=== PATIENT | female | born 1960 | race Hispanic/Latino ===

== ENCOUNTER 2019-07-30 03:45 | Emergency (ER) | payer SELFPAY ==
[2019-07-30] MEDS ORDERED: ONDANSETRON 4 MG/2 ML INJ IV ONE ×2 (04:18→12:02)
[2019-07-30] MEDS ORDERED: SODIUM CHLORIDE 0.9% 1000 ML 1,000 ML IV ONE (04:18)
--- NOTE | 2019-07-30 04:35 | Emergency Department Report ---
<AGATHA MASSEY - Last Filed: 07/30/19 08:08> ED Abdominal Pain HPI - General Chief Complaint: Arrhythmia/Palpitations Stated Complaint: HYPOTENSIVE Time Seen by Provider: 07/30/19 04:12 - Related Data Home Medications Medication Instructions Recorded Confirmed Last Taken Aspirin [Adult Low Dose Aspirin EC] 81 mg PO DAILY 09/01/16 09/02/16 09/01/16 81 mg Clopidogrel Bisulfate [Plavix] 75 mg PO DAILY 09/01/16 09/02/16 09/01/16 75 mg Dicyclomine [Bentyl] 10 mg PO QID 09/01/16 09/02/16 08/19/16 10 mg Gabapentin 600 mg PO DAILY 09/01/16 09/02/16 09/01/16 600 mg ISOSORBIDE MONOnitrate [Imdur ER] 30 mg PO DAILY 09/01/16 09/02/16 09/01/16 30 mg Insulin Aspart (Nf) [NovoLOG 0 units SQ AC 09/01/16 09/02/16 09/01/16 Flexpen] 30 units Insulin Glargine [Lantus VIAL] 50 unit SUB-Q BID 09/01/16 09/02/16 09/01/16 50 units Metoprolol Succinate 50 mg PO DAILY 09/01/16 09/02/16 09/01/16 50 mg Acyclovir [Zovirax Tab] 400 mg PO BID 09/02/16 09/02/16 09/01/16 400 mg Baclofen [Lioresal] 10 mg PO HS 09/02/16 09/02/16 09/01/16 10 mg Ondansetron [Zofran TAB] 4 mg PO Q6H PRN 09/02/16 09/02/16 08/19/16 4 mg raNITIdine HCL [Zantac 300 MG TAB] 300 mg PO HS 09/02/16 09/02/16 09/01/16 300 mg Previous Rx's Medication Instructions Recorded Last Taken Type AtorvaSTATin [Lipitor] 80 mg PO QHS #30 tablet 09/03/16 Unknown Rx Amoxicillin/Potassium Clav 1 each PO BID #20 tablet 07/30/19 Unknown Rx [Augmentin 875-125 Tablet] Ondansetron [Zofran Odt] 4 mg PO Q8HR PRN #14 tab.rapdis 07/30/19 Unknown Rx metroNIDAZOLE [Flagyl] 500 mg PO Q12HR #20 tab 07/30/19 Unknown Rx traMADoL [Ultram 50 MG tab] 50 mg PO Q4HR PRN #14 tablet 07/30/19 Unknown Rx Allergies Allergy/AdvReac Type Severity Reaction Status Date / Time Sulfa (Sulfonamide Allergy Shortness Verified 07/28/14 00:22 Antibiotics) of Breath morphine AdvReac Vomiting Verified 09/02/16 09:45 ED Past Medical Hx - Medications Home Medications: Home Medications Medication Instructions Recorded Confirmed Last Taken Type Aspirin [Adult Low Dose Aspirin EC] 81 mg PO DAILY 09/01/16 09/02/16 09/01/16 History 81 mg Clopidogrel Bisulfate [Plavix] 75 mg PO DAILY 09/01/16 09/02/16 09/01/16 History 75 mg Dicyclomine [Bentyl] 10 mg PO QID 09/01/16 09/02/16 08/19/16 History 10 mg Gabapentin 600 mg PO DAILY 09/01/16 09/02/16 09/01/16 History 600 mg ISOSORBIDE MONOnitrate [Imdur ER] 30 mg PO DAILY 09/01/16 09/02/16 09/01/16 History 30 mg Insulin Aspart (Nf) [NovoLOG 0 units SQ AC 09/01/16 09/02/16 09/01/16 History Flexpen] 30 units Insulin Glargine [Lantus VIAL] 50 unit SUB-Q BID 09/01/16 09/02/16 09/01/16 History 50 units Metoprolol Succinate 50 mg PO DAILY 09/01/16 09/02/16 09/01/16 History 50 mg Acyclovir [Zovirax Tab] 400 mg PO BID 09/02/16 09/02/16 09/01/16 History 400 mg Baclofen [Lioresal] 10 mg PO HS 09/02/16 09/02/16 09/01/16 History 10 mg Ondansetron [Zofran TAB] 4 mg PO Q6H PRN 09/02/16 09/02/16 08/19/16 History 4 mg raNITIdine HCL [Zantac 300 MG TAB] 300 mg PO HS 09/02/16 09/02/16 09/01/16 History 300 mg AtorvaSTATin [Lipitor] 80 mg PO QHS #30 tablet 09/03/16 Unknown Rx Amoxicillin/Potassium Clav 1 each PO BID #20 tablet 07/30/19 Unknown Rx [Augmentin 875-125 Tablet] Ondansetron [Zofran Odt] 4 mg PO Q8HR PRN #14 tab.rapdis 07/30/19 Unknown Rx metroNIDAZOLE [Flagyl] 500 mg PO Q12HR #20 tab 07/30/19 Unknown Rx traMADoL [Ultram 50 MG tab] 50 mg PO Q4HR PRN #14 tablet 07/30/19 Unknown Rx ED Medical Decision Making - Lab Data Result diagrams: 07/30/19 04:54 07/30/19 04:54 - Medical Decision Making Ms. Chowdary is a pleasant 59-year-old female, signed out to me by my colleague Dr. Camarena. Patient has a history of diabetes, HTN, CAD with stents, CABG, presents to ED with dizziness and abdominal pain. Patient states she was awakened from sleep with nausea, diaphoresis, mild abdominal pain, and dizziness. Patient denies fever, cough, chest pain, shortness of breath, diarrhea, headache. Patient states the epigastric pain has improved somewhat at this time. EMS reports patient was hypotensive in route. Blood pressure is currently normal. Patient reports she ate fish prepared at the grocery store earlier this evening, and is unclear if this could be the cause of her symptoms. Patient denies any sick contacts. Labs reviewed and is unremarkable. CT abdomen pelvis showed early diverticulitis. Patient given a dose of Zosyn IV in the emergency room. Patient stated that she is feeling much better. Patient given prescription for Augmentin and Flagyl and advised to follow-up with her primary care physician in the next 2 to 3 days and to return to the ER if she develop any new symptoms. ED Disposition Clinical Impression: Abdominal pain, Acute diverticulitis Disposition: TO HOME OR SELFCARE Is pt being admited?: No Condition: Stable Instructions: Diverticulitis (ED), Diverticulitis Diet (ED), Abdominal Pain (ED) Prescriptions: Amoxicillin/Potassium Clav [Augmentin 875-125 Tablet] 1 each PO BID #20 tablet metroNIDAZOLE [Flagyl] 500 mg PO Q12HR #20 tab traMADoL [Ultram 50 MG tab] 50 mg PO Q4HR PRN #14 tablet PRN Reason: Pain Ondansetron [Zofran Odt] 4 mg PO Q8HR PRN #14 tab.rapdis PRN Reason: Nausea And Vomiting Referrals: PRIMARY CARE, [Primary Care Provider] - 3-5 Days <BRETT CAMARENA - Last Filed: 07/30/19 21:23> ED Abdominal Pain HPI - General Source: patient, EMS Mode of arrival: Ambulatory Limitations: Other - History of Present Illness Initial Comments: 59-year-old female with history of diabetes, HTN, CAD with stents, CABG, presents to ED with dizziness and abdominal pain. Patient states she was awakened from sleep with nausea, diaphoresis, mild abdominal pain, and dizziness. Patient denies fever, cough, chest pain, shortness of breath, diarrhea, headache. Patient states the epigastric pain has improved somewhat at this time. EMS reports patient was hypotensive en route. Blood pressure is currently normal. Patient reports she ate fish prepared at the grocery store earlier this evening, and is unclear if this could be the cause of her symptoms. Patient denies any sick contacts. 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 denies: diarrhea, fever ED Review of Systems ROS: Stated complaint: HYPOTENSIVE Other details as noted in HPI Comment: All other systems reviewed and negative Constitutional: denies: chills, fever Respiratory: denies: cough, shortness of breath Cardiovascular: denies: chest pain Gastrointestinal: abdominal pain, nausea, vomiting. denies: diarrhea Neurological: denies: headache, vertigo ED Past Medical Hx - Past Medical History Previous Medical History?: Yes Hx Hypertension: Yes Hx Heart Attack/AMI: Yes (05/2016) Hx Diabetes: Yes Hx Arthritis: Yes Hx Headaches / Migraines: Yes - Surgical History Hx Coronary Stent: Yes Additional Surgical History: TRIPLE BYPASS, rt breast surgery ,TUMMY TUCK, salpingo-oophorectomy - Social History Smoking Status: Former Smoker Substance Use Type: None ED Physical Exam - General Limitations: Other General appearance: alert, in no apparent distress - Head Head exam: Present: atraumatic, normocephalic - Eye Eye exam: Present: normal appearance - ENT ENT exam: Present: mucous membranes moist - Neck Neck exam: Present: normal inspection - Respiratory Respiratory exam: Present: normal lung sounds bilaterally. Absent: respiratory distress - Cardiovascular Cardiovascular Exam: Present: normal rhythm, bradycardia - GI/Abdominal GI/Abdominal exam: Present: soft, tenderness (mild epigastric). Absent: dist ended - Extremities Exam Extremities exam: Present: normal inspection - Neurological Exam Neurological exam: Present: alert, oriented X3 - Psychiatric Psychiatric exam: Present: normal affect, normal mood - Skin Skin exam: Present: warm, dry, intact, normal color ED Course Vital Signs 07/30/19 07/30/19 07/30/19 04:11 05:15 06:19 Temperature 98 F Pulse Rate 50 L 55 L 58 L Respiratory 17 16 8 L Rate Blood Pressure 126/60 139/56 139/62 Blood Pressure 126/60 [Left] O2 Sat by Pulse 96 95 98 Oximetry 07/30/19 07/30/19 07/30/19 07:00 08:01 09:00 Temperature Pulse Rate 61 61 67 Respiratory 13 9 L 15 Rate Blood Pressure 136/59 117/54 117/54 Blood Pressure [Left] O2 Sat by Pulse 92 95 95 Oximetry 07/30/19 07/30/19 07/30/19 10:01 11:00 12:00 Temperature Pulse Rate 69 72 67 Respiratory 17 14 11 L Rate Blood Pressure 98/37 119/53 116/62 Blood Pressure [Left] O2 Sat by Pulse 93 95 99 Oximetry ED Medical Decision Making - Lab Data Result diagrams: 07/30/19 04:54 07/30/19 04:54 - EKG Data -: EKG Interpreted by Vt EKG shows normal: sinus rhythm, QRS complexes, ST-T waves Rate: bradycardia (rate 51) - EKG Data Interpretation: other (incomplete LBBB) - Radiology Data Radiology results: pending - Medical Decision Making 59 yo F w/ dizziness, abdominal pain, nausea and vomiting. Labs are unremarkable. Patient is currently awaiting CT Abd/Pelvis. She has been given dilaudid and zofran and is currently feeling better. Vitals are stable, w/ normal blood pressure. Patient has been signed out to Dr Massey to follow up on CT results and dispo the patient. - Differential Diagnosis ACS, pancreatitis, bowel obstruction Critical care attestation.: If time is entered above; I have spent that time in minutes in the direct care of this critically ill patient, excluding procedure time.
[2019-07-30 05:21] LABS: Basophils % (Auto) 0.7 % (0.0-1.8); Eosinophils # (Auto) 0.2 K/mm3 (0.0-0.4); Eosinophils % (Auto) 3.3 % (0.0-4.3); Hematocrit 28.6 % (30.3-42.9); Hemoglobin 9.7 gm/dl (10.1-14.3); Lymphocytes # (Auto) 2.3 K/mm3 (1.2-5.4); Mean Corpuscular HGB Conc 34 % (30-34); Mean Corpuscular Volume 87 fl (79-97); Monocytes # (Auto) 0.4 K/mm3 (0.0-0.8); Monocytes % (Auto) 7.2 % (0.0-7.3); Platelet Count 199 K/mm3 (140-440); Red Blood Count 3.28 M/mm3 (3.65-5.03); Red Cell Distribution Width 14.2 % (13.2-15.2)
[2019-07-30] MEDS ORDERED: HYDROmorphone 1 MG/1 ML INJ IV ONE ×2 (05:33→12:02)
[2019-07-30 05:40] LABS: Alanine Aminotransferase 12 units/L (7-56); Albumin 3.6 g/dL (3.9-5); BUN/Creatinine Ratio 19; Blood Urea Nitrogen 26 mg/dL (7-17); Calcium 8.9 mg/dL (8.4-10.2); Hemolysis Index 58
[2019-07-30 05:43] LABS: Bilirubin,Direct < 0.2 mg/dL (0-0.2)
--- NOTE | 2019-07-30 06:12 | XRay Report ---
CHEST 1 VIEW 07/30/2019 4:02 AM INDICATION / CLINICAL INFORMATION: chest pain. COMPARISON: 09/03/16 FINDINGS: SUPPORT DEVICES: None. HEART / MEDIASTINUM: Heart is mildly enlarged but stable. Median sternotomy wires are unchanged. Left -sided AICD has been placed in the interval. LUNGS / PLEURA: No significant pulmonary or pleural abnormality. No pneumothorax. ADDITIONAL FINDINGS: Right axillary/chest wall surgical clips are unchanged. IMPRESSION: 1. Cardiomegaly but no acute pulmonary or pleural findings. Signer Name: Kayce Maurer MD Signed: 07/30/2019 6:08 AM Workstation Name: [id number]
--- NOTE | 2019-07-30 06:21 | Cat Scan Report ---
CT ABDOMEN AND PELVIS WITHOUT CONTRAST INDICATION / CLINICAL INFORMATION: abd pain, vomiting. TECHNIQUE: Axial CT images were obtained through the abdomen and pelvis without IV contrast. All CT scans at [facility] location are performed using CT dose reduction for ALARA by means of automated exposure control. COMPARISON: CT dated 10/19/10 FINDINGS: LOWER CHEST: No significant abnormality. LIVER: Small amount of portal venous gas in the left lobe of the liver. No focal hepatic lesion. GALLBLADDER: No significant abnormality. BILE DUCTS: No significant abnormality. PANCREAS: No significant abnormality. SPLEEN: No significant abnormality. ADRENALS: No significant abnormality. RIGHT KIDNEY and URETER: No significant abnormality. LEFT KIDNEY and URETER: No significant abnormality. STOMACH and SMALL BOWEL: No acute abnormality of the stomach or small bowel. No small bowel pneumatos is. COLON: Mild to moderate diffuse colonic diverticulosis. Mild inflammation of the mid descending colon likely representing mild diverticulitis. No extraluminal gas or free air. No abscess. APPENDIX: No significant abnormality. PERITONEUM: No free fluid. No free air. No fluid collection. LYMPH NODES: No significant adenopathy. AORTA and ARTERIES: Mild atherosclerotic calcification without acute abnormality. Small vessel calcif ication often seen with diabetes and/or renal dysfunction. IVC and VEINS: No significant abnormality. URINARY BLADDER: No significant abnormality. REPRODUCTIVE ORGANS: No significant abnormality. ADDITIONAL FINDINGS: None. SKELETAL SYSTEM: No significant abnormality. IMPRESSION: 1. Colonic diverticulosis with probable mild/early diverticulitis of the descending colon. No free ai r or abscess. Small amount of intrahepatic portal venous gas likely related to diverticulitis. Signer Name: Kayce Maurer MD Signed: 07/30/2019 6:17 AM Workstation Name: [id number]
[2019-07-30] MEDS ORDERED: PIPERACILLIN/TAZOBACTAM 3.375 3.375 GM/50 ML BAG IV ONE (08:08)
[2019-07-30 12:02] VITALS: BP 116/62
== END 2019-07-30 13:03 | disposition home or self-care (01) ==
LOC: ED 03:45
DX: K57.90 Diverticulosis of intestine, part unspecified, without perforation or abscess without bleeding (principal); R10.9 Unspecified abdominal pain; I11.0 Hypertensive heart disease with heart failure; I50.9 Heart failure, unspecified; E11.9 Type 2 diabetes mellitus without complications; G43.909 Migraine, unspecified, not intractable, without status migrainosus; M19.90 Unspecified osteoarthritis, unspecified site; I25.10 Atherosclerotic heart disease of native coronary artery without angina pectoris; Z79.899 Other long term (current) drug therapy; Z95.5 Presence of coronary angioplasty implant and graft; Z87.891 Personal history of nicotine dependence; Z98.890 Other specified postprocedural states; Z88.6 Allergy status to analgesic agent; Z88.2 Allergy status to sulfonamides
CPT/HCPCS: 36415; 71045; 74176; 80048; 80076; 83690; 84484; 85025; 93005; 93010; 96361; 96365; 96375; 96376; 99285; J1170; J2405; J2543; J7030